=== PATIENT | male | born 1980 | race African-American/Black ===

== ENCOUNTER 2023-01-19 09:31 | Outpatient (CLI) | payer OTHER | END 2023-01-19 09:32 | disposition home or self-care (01) | LOC: CSHRAD 09:31 | PROVIDERS: ATTEND Orthopaedic Surgery | DX: M54.50 Low back pain, unspecified (principal); M41.86 Other forms of scoliosis, lumbar region | CPT/HCPCS: 72100 ==

== ENCOUNTER 2023-03-17 19:31 | Emergency (ER) | payer OTHER ==
[2023-03-17] MEDS ORDERED: Ketorolac Tromethamine 30 MG/ML VIAL ONE (21:04)
== END 2023-03-17 21:18 | disposition home or self-care (01) ==
LOC: CSHERS 19:31
DX: S16.1XXA Strain of muscle, fascia and tendon at neck level, initial encounter (principal); R51.9 Headache, unspecified; F17.210 Nicotine dependence, cigarettes, uncomplicated; I10 Essential (primary) hypertension; V49.9XXA Car occupant (driver) (passenger) injured in unspecified traffic accident, initial encounter
CPT/HCPCS: 70450; 72125; 96372; J1885